=== PATIENT | male | born 1995 | race Hispanic/Latino ===

== ENCOUNTER 2020-11-05 10:26 | Emergency (ER) | payer SELFPAY ==
[~2020-11-05] VITALS: Ht 180.3 cm; Wt 93.0 kg
[2020-11-05 12:19] VITALS: BP 118/65
== END 2020-11-05 12:20 | disposition home or self-care (01) ==
LOC: ER 10:45
DX: J02.0 Streptococcal pharyngitis (principal)
CPT/HCPCS: 36415; 82948; 99283

== ENCOUNTER 2022-03-23 19:43 | Emergency (ER) | payer SELFPAY ==
[~2022-03-23] VITALS: Ht 180.3 cm; Wt 83.9 kg
[2022-03-23] MEDS ORDERED: ONDANSETRON HCL INJ 2MG/ML 2ML 2 MG/ML VIAL IV STA (20:17)
[2022-03-23] MEDS ORDERED: KETOROLAC TROMETHAMINE 30 MG/ML VIAL IV STA (20:17)
[2022-03-23] MEDS ORDERED: DIPHENHYDRAMINE HCL INJ 50 MG/ML VIAL IV ONE (20:30)
[2022-03-23] MEDS ORDERED: ACETAMIN/BUTALBITAL/CAFFEINE TAB PO ONE (20:30)
[2022-03-23] MEDS ORDERED: KETOROLAC TROMETHAMINE 30 MG/ML VIAL ONE (20:34)
[2022-03-23] MEDS ORDERED: DIPHENHYDRAMINE HCL INJ 50 MG/ML VIAL ONE (20:34)
[2022-03-23] MEDS ORDERED: METOCLOPRAMIDE HCL 10 MG/2ML VIAL ONE (20:35)
[2022-03-23 22:59] VITALS: BP 134/90
== END 2022-03-23 22:00 | disposition home or self-care (01) ==
LOC: ER 20:13
DX: G43.909 Migraine, unspecified, not intractable, without status migrainosus (principal); I10 Essential (primary) hypertension
CPT/HCPCS: 99283; J1200; J1885; J2405; J2765